=== PATIENT | male | born 1965 | race African-American/Black ===

== ENCOUNTER → 2021-08-10 | Outpatient (CLI) | payer OTHER ==
--- NOTE | 2021-08-10 15:44 | RAD ---
XR LUMBAR SPINE 2-3V History: Reason: LOW BACK PAIN. LEFT KNEE PAIN. / Spl. Instructions: / History: Technique: 2 views lumbar spine. Comparison: None. Findings: Moderate lumbar spondylosis most prominent L4-5 and L5-S1. Facet arthropathy. Normal vertebral body h eight. No acute fracture. Impression: 1. Moderate lumbar spondylosis. Electronically signed by: Devyn Gutierrez DO (08/10/2021 3:42 PM) [id number]
--- NOTE | 2021-08-10 15:45 | RAD ---
XR KNEE_LT 1-2 VIEWS History: Reason: CHRONIC LEFT KNEE AND LOW BACK PAIN / Spl. Instructions: / History: Technique: 2 views left knee Comparison: None. Findings: Moderate knee degenerative changes most prominent in the medial and patellofemoral compartments with joint space narrowing and marginal osteophyte formation. No dislocation. No acute fracture. No signif icant knee joint effusion. Impression: 1. Moderate left knee DJD. Electronically signed by: Devyn Gutierrez DO (08/10/2021 3:42 PM) [id number]
== END ==
LOC: RAD 09:01
DX: Z02.71 Encounter for disability determination (principal); M47.817 Spondylosis without myelopathy or radiculopathy, lumbosacral region; M48.8X6 Other specified spondylopathies, lumbar region; M17.12 Unilateral primary osteoarthritis, left knee; M25.762 Osteophyte, left knee; M25.862 Other specified joint disorders, left knee
CPT/HCPCS: 72100; 73560